=== PATIENT | male | born 1960 | race Caucasian/White ===

== ENCOUNTER 2022-05-15 09:35 | Day surgery (SDC) | payer OTHER ==
[~2022-05-15] VITALS: Ht 172.7 cm; Wt 83.9 kg
[2022-05-15] MEDS ORDERED: fentaNYL citrate 0.05 MG/ML VIAL ONE (12:16)
[2022-05-15] MEDS ORDERED: LIDOCAINE 2% 100 MG/5 ML UJET TP ONE ×2 (12:17→13:41)
[2022-05-15] MEDS ORDERED: GLUCAGON 1 MG VIAL ONE (13:41)
[2022-05-15] MEDS ORDERED: fentaNYL citrate 0.05 MG/ML VIAL IVP ONE (13:55)
[2022-05-15] MEDS ORDERED: GLUCAGON 1 MG VIAL IVP ONE (13:55)
== END 2022-05-15 14:05 | disposition home or self-care (01) ==
LOC: MOR 09:35 → MMU 09:35 → MOR 14:05
PROVIDERS: ATTEND Internal Medicine Gastroenterology
DX: R19.5 Other fecal abnormalities (principal); K63.5 Polyp of colon; I10 Essential (primary) hypertension; E11.9 Type 2 diabetes mellitus without complications; Z96.653 Presence of artificial knee joint, bilateral; Z20.822 Contact with and (suspected) exposure to COVID-19; Z79.899 Other long term (current) drug therapy
CPT/HCPCS: 45385; 87426; J1610; J3010